=== PATIENT | female | born 1945 | race Caucasian/White ===

== ENCOUNTER → 2024-02-19 14:31 | Outpatient (REF) | payer MEDICARE, OTHER, SELFPAY | LOC: HWRAD 14:31 | PROVIDERS: ATTENDING PHYSICIAN Internal Medicine Medical Oncology; FAMILY PHYSICIAN Internal Medicine | DX: C7A.8 Other malignant neuroendocrine tumors (principal); C7B.8 Other secondary neuroendocrine tumors | CPT/HCPCS: 71260; 74177; Q9967 ==

== ENCOUNTER → 2024-08-13 12:18 | Outpatient (REF) | payer MEDICARE, OTHER, SELFPAY | LOC: HWRAD 12:18 | PROVIDERS: ATTENDING PHYSICIAN Internal Medicine Medical Oncology | DX: C7A.8 Other malignant neuroendocrine tumors (principal); C7B.8 Other secondary neuroendocrine tumors | CPT/HCPCS: 71260; 74177; Q9967 ==

== ENCOUNTER → 2025-02-11 11:15 | Outpatient (REF) | payer MEDICARE, OTHER, SELFPAY | LOC: RAD 11:15 | PROVIDERS: ATTENDING PHYSICIAN Internal Medicine Medical Oncology | DX: C7A.8 Other malignant neuroendocrine tumors (principal); C7B.8 Other secondary neuroendocrine tumors | CPT/HCPCS: 71260; 74177; Q9967 ==